=== PATIENT | male | born 2000 | race Caucasian/White ===

== ENCOUNTER 2020-06-28 11:24 | Emergency (ER) | payer BC, SELFPAY ==
--- NOTE | ~2020-06-28 | XR_ITS ---
XR ankle LT min 3V 06/28/2020 11:48 INDICATION: Left ankle pain PROCEDURE: 4 views left ankle COMPARISON: No prior studies for comparison. FINDINGS: There is a nondisplaced oblique distal fibular fracture. Mild lateral soft tissue swelling. Ankle mortise intact. No foreign bodies are identified. IMPRESSION: 1: Nondisplaced oblique distal fibular fracture. Reviewed, dictated and finalized at location A.
--- NOTE | 2020-06-28 11:34 | ED.LOWEXIN ---
HPI - Extremity Injury (Lower) General Chief Complaint: Extremity Injury, Lower Stated Complaint: lt ankle injury Source: patient, RN notes reviewed and old records reviewed Mode of arrival: ambulatory Limitations: no limitations History of Present Illness HPI Narrative: 19 year old male presents to express care using crutches to assist with ambulation with complaints of walking up a hill on Sunday twisting his left foot and then fell onto left ankle. Patient states pain with weight bearing, he has moderate swelling to the lateral aspect of his left ankle with bruising noted to the lateral aspect of his foot. Patient has no pain at rest with mild pain stated if he tries to weight bear Patient has applied an tyrell wrap to his ankle and foot region and has been applying ice and elevating his foot with some Ibuprofen taken. MD complaint: ankle injury (left) Onset (ago): day(s) (2) Injury: Left: ankle Type of Injury: eversion Place: street/outdoors Relieving factors: NSAID, cold therapy and rest Exacerbating factors: weight bearing Context: fall and walking Associated symptoms: snap/pop sensation and swelling Other symptoms: none Treatments prior to arrival: cold therapy, NSAIDS and other (tyrell wrap) Related Data Home Medications Medication Instructions Recorded Confirmed No Home Medications 06/28/20 06/28/20 Allergies Allergy/AdvReac Type Severity Reaction Status Date / Time No Known Allergies Allergy Unknown Unverified 06/28/20 11:41 Review of Systems Review of Systems: Narrative: CONSTITUTIONAL: Denies fever, chills, or sweats. EYES: Denies visual changes, redness, or discharge. ENT: Denies rhinorrhea, congestion, sore throat, or otalgia. CARDIOVASCULAR: Denies chest pain, palpitations, or edema. RESPIRATORY: Denies cough or dyspnea. GASTROINTESTINAL: Denies abdominal pain, nausea, vomiting, or diarrhea. GENITOURINARY: Denies dysuria or hematuria. SKIN: Denies rash or itching. MUSCULOSKELETAL: Denies back pain,positive for left lateral ankle pain, or myalgia. NEUROLOGIC: Denies headache, numbness, or weakness. PSYCHIATRIC: Denies anxiety or depression. All systems reviewed & are unremarkable except as noted in HPI and below PMFSH Past Medical History Medical History (Updated 06/28/20 @ 12:23 by Linda Davis NP) History of strep sore throat Pneumonia Surgical History Surgical History (Updated 06/28/20 @ 12:23 by Linda Davis NP) No history of previous surgery Family History Family History (Updated 06/28/20 @ 12:25 by Linda Davis NP) Grandparent Hypertension Father Heart disease Social History Social History (Updated 06/28/20 @ 12:25 by Linda Davis NP) Smoking status: Never smoker Alcohol intake: current Alcohol use details: social Substance use: never Living arrangements: with family Gender identity (if verbalized by the patient): Male Comments At time of signature, agree with nursing past medical, surgical, social and family history. There is no relevant family history pertinent to the presenting complaint Exam Narrative: Exam Narrative: GENERAL: Well-appearing, well-nourished, and in no acute distress. HEAD: Normocephalic, atraumatic. EYES: PERRLA and EOMI. ENT: Nares clear, no rhinorrhea or epistaxis. Mucous membranes moist. NECK: Supple.no lymphadenopathy CHEST: Clear to auscultation. No respiratory distress.SAO2 100% on room air HEART: Regular rate and rhythm. No murmur heard. Normal peripheral pulses. ABDOMEN: Soft, nontender, nondistended, normal active bowel sounds. EXTREMITIES: Normal range of motion with exception to left ankle. Patient has pain and swelling to lateral left ankle with bruising to lateral foot. Patient has strong pedal and posterior tibial pulses with nail beds having brisk refill, no increase in pain with movement of his left ankle. SKIN: Warm, dry, no rash. NEURO: No focal deficits. Alert and oriented x3. Course Vital Sign
[2020-06-28 11:37] VITALS: BP 124/52; PULSE 59; RESP 16; TEMP 36.6; O2SAT 100
== END 2020-06-28 12:58 | disposition home or self-care (01) ==
PROVIDERS: Emergency Provider Registered Nurse
DX: S82.832A Other fracture of upper and lower end of left fibula, initial encounter for closed fracture (principal); X50.9XXA Other and unspecified overexertion or strenuous movements or postures, initial encounter
CPT/HCPCS: 29515; 73610; 99214; G0463

== ENCOUNTER 2023-06-04 17:09 | Emergency (ER) | payer BC, SELFPAY ==
--- NOTE | ~2023-06-04 | XR_ITS ---
EXAM: XR finger 3rd LT min 2V DATE: 06/04/2023 17:36 HISTORY: injured finger, 2 wks ago . COMPARISON: None available. FINDINGS: Normal mineralization. Oblique extra-articular fracture of the left third proximal phalang e with 3 mm medial displacement and minimal posterior displacement. No lytic or blastic lesion. Joint spaces are maintained. No erosion or periosteal change. Soft tissue swelling over the fracture site. IMPRESSION: Minimally displaced, oblique, extra-articular fracture of the left third proximal phalang e. Reviewed, dictated and finalized at location K. TURNER IMPRESSION: Minimally displaced, oblique, extra-articular fracture of the left third proximal phalange.
[2023-06-04 17:22] VITALS: BP 136/88; PULSE 68; RESP 20; TEMP 36.8; O2SAT 97
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
== END 2023-06-04 18:31 | disposition home or self-care (01) ==
PROVIDERS: Emergency Provider Nurse Practitioner
DX: S62.613A Displaced fracture of proximal phalanx of left middle finger, initial encounter for closed fracture (principal); X58.XXXA Exposure to other specified factors, initial encounter
CPT/HCPCS: 29130; 73140; 99214; G0463

== ENCOUNTER 2024-07-17 10:03 | Emergency (ER) | payer BC, SELFPAY ==
[2024-07-17] VITALS (8 sets, daily range): BP systolic 121–134; BP diastolic 75–96; PULSE 57–72; RESP 12–18; TEMP 37.1; O2SAT 98–100
--- NOTE | ~2024-07-17 | XR_ITS ---
EXAM/PROCEDURE: XR chest 2V - 07/17/2024 10:20 CDT HISTORY: 23 years old Male with cp TECHNIQUE: Two view(s) of the chest. COMPARISON: None available. FINDINGS: LUNGS/ PLEURA: No focal consolidation. No appreciable pneumothorax or large pleural effusion. HEART/ MEDIASTINUM: Heart appears normal in size. BONES: No acute osseous abnormality. OTHER: Visualized upper abdomen is unremarkable. IMPRESSION: No acute process. Reviewed, dictated and finalized at location A. IMPRESSION: No acute process.
--- NOTE | 2024-07-17 10:06 | ECG_ITS ---
Test Date: 2024-07-17 10:15:02 Measurements Intervals [place] Rate: 61 P: 55 CT: 160 QRS: 81 QRSD: 101 T: 30 QT: 373 QTc: 376 Interpretive Statements SINUS RHYTHM WITH SINUS ARRHYTHMIA NORMAL ECG No previous ECG available for comparison Electronically Signed On 07-17-2024 10:23:14 CDT by Hermann Michel D.O.
[2024-07-17] MEDS: ASPIRIN 81 MG CHEWABLE TABLET 324 MG PO (10:23)
[2024-07-17 10:32] LABS: Basophils Percent Auto 0.4 % (0.2-1.2); Eosinophils Absolute Auto 0.2 K/mm3 (0-0.3); Eosinophils Percent Auto 2.4 % (0-4.4); Hematocrit 43.9 % (42.0-52.0); Hemoglobin 15.1 g/dL (14.0-18.0); Immature Granulocyte Absolute 0.02 K/mm3 (0.00-0.031); Immature Granulocyte Percent A 0.3 % (0-0.5); Lymphocytes Absolute Auto 2.26 K/mm3 (0.9-3.2); Lymphocytes Percent Auto 28.6 % (18.3-44.2); Mean Corpuscular HGB Conc 34.4 g/dl (32-36); Mean Corpuscular Hemoglobin 29.5 pg (26-34); Mean Corpuscular Volume 85.7 fl (80-100); Mean Platelet Volume 9.5 fl (7.4-10.4); Monocytes Absolute Auto 0.6 K/mm3 (0.1-0.6); Monocytes Percent Auto 7.2 % (2.6-8.5); Neutrophils Absolute Auto 4.8 K/mm3 (1.3-6.7); Neutrophils Percent Auto 61.1 % (45.5-73.1); Platelet Count Result 236 k/mm3 (150-375); Red Blood Count 5.12 M/mm3 (4.6-6.20); Red Cell Distribution Width 11.6 % (11.5-14.5); White Blood Count 7.9 K/mm3 (4.5-10.0)
--- OUTSIDE RECORDS SUMMARY | 2024-07-17 10:41 | XMS_ITS | Clinical Summary ---
Author Organization [facility] [employer] Address [address] [place] [address] Care Team Providers Care Tree Tapping Laborer Name Role Phone Gris Mccormick MD Primary Care Provider Source Comments [facility] [employer],non-owned Affiliates and Associated Physician Practices is amultiple site organization consisting of ambulatory clinics and hospital sitesin [place], [place], [place] and [place]. This disclosure is being madepursuant to the Care Everywhere program and may not contain all information available regarding this patient. Last updated 17.[facility] [employer] Allergies No known active allergies Immunizations Name Administration Dates Next Due MENINGOCOCCAL ACWY (MCV4P) VAC IM 12/30/2017 Social History Tobacco Use Types Packs/Day Years Used Date Smoking Tobacco: Never Assessed Sex and Gender Information Value Date Recorded Sex Assigned at Not on file Gender Identity Not on file Sexual Orientation Not on file Plan of Treatment Health Maintenance Due Date Last Done Comments HIV SCREENING 07/25/2015 HPV VACCINE (1 - Male 3-dose series) 07/25/2015 MENINGOCOCCAL (Group B) VACC INE SHARED DECISION-MAKING (1 of 2 - Standard) 2016 HEPATITIS C SCREENING 07/20/2018 DTAP/TDAP/TD VACCINES (1 - Tdap) 07/25/2019 HEPATITIS B VACCINE (1 of 3 - 19+ 3-dose series) 07/25/2019 COVID-19 VACCINE (1 - 2023-2 5 season) 2023 DEPRESSION SCREENING 04/09/2024 INFLUENZA VACCINE (Season Ended) 2024 ZOSTER VACCINE (1 of 2) 2050 MENINGOCOCCAL GROUPS A/C/Y/W VACCINE Completed 12/30/2017 HIB VACCINE Aged Out No longer eligi ble based on patient's age to complete this topic PNEUMOCOCCAL VACCINE Aged Out No long er eligible based on patient's age to complete this topic Care Teams Tree Tapping Laborer Relationship Specialty Start Date End Date Gris Mccormick MD [address] [place] [address] [address] [place] [address] PCP - General Pediatrics 12/30/17
[2024-07-17 10:42] LABS: Alanine Aminotransferase 22 U/L (6-50); Albumin Level 4.8 g/dL (3.5-5.1); Alkaline Phosphatase 81 U/L (38-126); Anion Gap 12 mmol/L (4-12); Aspartate Amino Transferase 23 U/L (17-59); Bilirubin,Total 0.6 mg/dL (0.2-1.3); Blood Urea Nitrogen 16 mg/dL (9-20); Calcium 9.3 mg/dL (8.4-10.2); Carbon Dioxide 22 mmol/L (22-30); Chloride 105 mmol/L (98-107); Estimated CRCL calculation 146 ml/min; Estimated Glomerular Filt Rate > 60; Glucose 93 mg/dL (65-110); Lipase 61 U/L (23-300); Potassium 3.9 mmol/L (3.4-5.0); Sodium 139 mmol/L (137-145)
[2024-07-17 10:45] LABS: Prothrombin Time 13.7 Seconds (11.1-14.7)
[2024-07-17 10:46] LABS: Partial Thromboplastin Time 29.5 Seconds (22.3-36.8)
[2024-07-17 10:55] LABS: Troponin I < 0.012 ng/mL (0.000-0.034)
--- OUTSIDE RECORDS SUMMARY | 2024-07-17 11:13 | XMS_ITS | Clinical Summary ---
Author Organization [facility] [employer] Address [address] [place] [address] Care Team Providers Care Granulating Machine Operator Name Role Phone Gris Mccormick MD Primary Care Provider [phone] Source Comments [facility] [employer],non-owned Affiliates and Associated Physician Practices is amultiple site organization consisting of ambulatory clinics and hospital sitesin [place], [place], [place] and [place]. This disclosure is being madepursuant to the Care Everywhere program and may not contain all information available regarding this patient. Last updated 17.[facility] [employer] Allergies No known active allergies Immunizations Name [...] age to complete this topic Care Teams Granulating Machine Operator Relationship Specialty Start Date End Date Gris Mccormick MD [address] [place] [address] [address] [place] [address] PCP - General Pediatrics 12/30/17
--- NOTE | 2024-07-17 11:28 | ED_ITS ---
HPI - Chest Pain General Chief Complaint: Chest Pain Stated Complaint: cp Time Seen by Provider: 07/17/24 10:16 Source: patient Mode of arrival: ambulatory Limitations: no limitations History of Present Illness HPI narrative: Patient is a 23-year-old male who presents the ED with report of chest pain, palpitations. Patient reports last night he was having palpitations, described as a fluttering in his chest. States the symptoms lasted from approximately 11:00 p.m. to 4:00 a.m.. States he had some discomfort in his chest at that time, mild shortness of breath. He had recurrent symptoms this morning while at work and prompted here for further evaluation. Does note that he felt anxious with these symptoms. Has history of anxiety. No previous heart issues. He does have history of heart disease in his father at a young age (late 30s). Denies recent cough or cold sx's, pain or swelling in legs, fevers. Related Data Home Medications ?Medication ?Instructions ?Recorded ?Confirmed ?Last Taken ?Type No Home Medications 06/28/20 07/17/24 Unknown History Allergies Allergy/AdvReac Type Severity Reaction Status Date / Time No Known Allergies Allergy Unknown Verified 07/17/24 10:22 Review of Systems 2 Review of Systems: All systems reviewed & are unremarkable except as noted in HPI. All systems reviewed & are unremarkable except as noted in HPI and below PMFSH Past Medical History Medical History Pneumonia History of strep sore throat Surgical History Surgical History No history of previous surgery Family History Family History Grandparent Hypertension Father Heart disease Social History Social History Smoking status: Never smoker Alcohol intake: current Alcohol use details: social Substance use: never Living arrangements: with family Gender identity (if verbalized by the patient): Male Exam 2 Narrative: GENERAL: Well appearing, well-nourished, non-toxic, in no acute distress. HEAD: Normocephalic, atraumatic. RESPIRATORY: Airway patent, respirations nonlabored. Clear to auscultation bilaterally, no rales, rhonchi, wheezing. Focal lung sounds. CARDIOVASCULAR: Regular rate and rhythm without murmurs, rubs, or gallops. ABDOMINAL: Soft, nontender, nondistended. Normoactive BS. MUSCULOSKELETAL: Moves all extremities. No gross deformities. No chest wall tenderness to palpation. No calf tenderness. No peripheral edema. SKIN: Warm, dry, normal color. NEURO: A&O X3. Speech clear. Cranial nerves II-XII grossly intact. Steady gait. No ataxic movements. PSYCHIATRIC: Appropriate mood and affect. Normal interaction. Course Vital Signs Vital signs: Vital Signs Temperature 98.7 F 07/17/24 10:11 Pulse Rate 69 07/17/24 10:11 Respiratory Rate 18 07/17/24 10:11 Blood Pressure 127/88 07/17/24 10:11 Pulse Oximetry 99 07/17/24 10:11 Oxygen Delivery Room Air 07/17/24 10:11 Temperature 98.7 F 07/17/24 10:11 Pulse Rate 72 07/17/24 14:01 Respiratory Rate 12 07/17/24 14:01 Blood Pressure 134/84 07/17/24 14:01 Pulse Oximetry 100 07/17/24 14:01 Oxygen Delivery Room Air 07/17/24 10:21 MDM - Chest Pain MDM Narrative Medical decision making narrative: Basic laboratory studies are unremarkable. Stable electrolytes. Normal magnesium. TSH within normal range. EKG with sinus rhythm, sinus arrhythmia. No concerning ST changes. Troponin undetectable x2. D-dimer within normal range. Chest x-ray is clear. No ectopy appreciated on ekg monitor tech throughout ED stay. Discussed overall reassuring workup. Feel patient is safe for discharge home at this time. Will refer to Cardiology as outpatient. Advised if palpitations persist, he may require Holter monitoring. Also recommended close follow-up with PCP for further evaluation. Given strict return precautions. Patient in agreement with plan, feels comfortable going home. Discharged in stable condition. Medical Records Data Attestation: I reviewed the patient's medical records. Lab Data Attestation: I reviewed the patient's lab results. 07/17/24 10:18 07/17/24 10:18 Labs: Lab Results 07/17/24 07/17/24 Range/Units 10:18 13:16 WBC 7.9 (4.5-10.0) K/mm3 RBC 5.12 (4.6-6.20) M/mm3 Hgb 15.1 (14.0-18.0) g/dL Hct 43.9 (42.0-52.0) % MCV 85.7 (80-100) fl MCH 29.5 (26-34) pg MCHC 34.4 (32-36) g/dl RDW 11.6 (11.5-14.5) % Plt Count 236 (150-375) k/mm3 MPV 9.5 (7.4-10.4) fl Immature Gran % (Auto) 0.3 (0-0.5) % Neut % (Auto) 61.1 (45.5-73.1) % Lymph % (Auto) 28.6 (18.3-44.2) % Obion % (Auto) 7.2 (2.6-8.5) % Eos % (Auto) 2.4 (0-4.4) % Baso % (Auto) 0.4 (0.2-1.2) % Lymph # (Auto) 2.26 (0.9-3.2) K/mm3 Obion # (Auto) 0.6 (0.1-0.6) K/mm3 Eos # (Auto) 0.2 (0-0.3) K/mm3 Baso # (Auto) 0.0 (0.0-0.1) K/mm3 Abs Immat Gran (auto) 0.02 (0.00-0.031) K/mm3 Absolute Neuts (auto) 4.8 (1.3-6.7) K/mm3 Absolute Nucleated RBC 0.000 (0.0-0.012) K/mm3 Nucleated RBC % 0.0 (0.0-0.2) % PT 13.7 (11.1-14.7) Seconds INR 1.0 APTT 29.5 (22.3-36.8) Seconds D-Dimer < 0.27 (<0.48) ug/mL Sodium 139 (137-145) mmol/L Potassium 3.9 (3.4-5.0) mmol/L Chloride 105 (98-107) mmol/L Carbon Dioxide 22 (22-30) mmol/L Anion Gap 12 (4-12) mmol/L BUN 16 (9-20) mg/dL Creatinine 0.77 (0.7-1.3) mg/dL Estim Creat Clear Calc 146 ml/min Estimated GFR > 60 (59 - ) Glucose 93 (65-110) mg/dL Calcium 9.3 (8.4-10.2) mg/dL Magnesium 2.0 (1.6-2.3) mg/dL Total Bilirubin 0.6 (0.2-1.3) mg/dL AST 23 (17-59) U/L ALT 22 (6-50) U/L Alkaline Phosphatase 81 (38-126) U/L Troponin I < 0.012 < 0.012 (0.000-0.034) ng/mL Total Protein 7.0 (6.3-8.2) g/dL Albumin 4.8 (3.5-5.1) g/dL Lipase 61 (23-300) U/L TSH (Reflex) 1.530 (0.465-4.68) uIU/mL Imaging Data Attestation: I personally reviewed and interpreted this imaging study as follows: Radiologist's impression: ITS Impressions Chest X-Ray 07/17/24 10:42 IMPRESSION: No acute process. ECG Data EKG #1: Attestation: I personally reviewed and interpreted this ECG as follows: ECG completion date: 07/17/24 ECG completion time: 10:15 EKG Interpretation: normal rate (61), sinus rhythm (With sinus arrhythmia) and no ST changes Discharge Plan Discharge Clinical Impression: Intermittent palpitations, Atypical chest pain Patient Disposition: Home Condition: Stable Instructions: Antibiotic Form, Chest Pain (ED), Heart Palpitations (ED) Additional Instructions: Your workup here was reassuring. There was no evidence of injury to your heart. Continue to monitor symptoms. Follow-up with your primary care doctor and/or Cardiology for further evaluation. Return to the ED if you experience worsening or severe palpitations, severe chest pain, difficulty breathing, unable to keep down food or drink, passing out, or any other symptoms of concern. Patient Language: Ukrainian Prescriptions: No Action No Home Medications Follow-up/Referrals: Hermann Michel DO [Physician] - (CARDIOLOGY) PHYSICIAN,HEALTH ASSESSMENT AND TREATMENT TEACHER [Primary Care Provider] - Joao Cho MD [Physician] - (PRIMARY CARE) Time of Disposition: 13:51
[2024-07-17 11:57] LABS: D Dimer < 0.27 ug/mL (<0.48)
--- NOTE | 2024-07-17 13:09 | ECG_ITS ---
Test Date: 2024-07-17 13:15:50 Measurements Intervals Lead Rate: 49 P: 58 ME: 155 QRS: 82 QRSD: 102 T: 18 QT: 407 QTc: 369 Interpretive Statements SINUS BRADYCARDIA BASELINE ARTIFACT- II, III, AVR, AVL, AVF ABNORMAL ECG Compared to ECG 07/17/2024 10:15:02 HEART RATE HAS DECREASED Electronically Signed On 07-17-2024 13:54:20 CDT by Hermann Michel D.O.
[2024-07-17 13:50] LABS: Troponin I < 0.012 ng/mL (0.000-0.034)
== END 2024-07-17 14:08 | disposition home or self-care (01) ==
PROVIDERS: Emergency Medicine; Emergency Provider Physician Assistant
DX: R00.2 Palpitations (principal); R07.89 Other chest pain; Z87.01 Personal history of pneumonia (recurrent); R00.1 Bradycardia, unspecified
CPT/HCPCS: 36415; 71046; 80053; 83690; 83735; 84443; 84484; 85025; 85380; 85610; 85730; 93005; 99284; A9270